=== PATIENT | female | born 1970 | race Caucasian/White ===

== ENCOUNTER → 2023-11-07 | Outpatient (CLI) | payer OTHER ==
[2023-11-07 11:41] LABS: BASO # 0.1 10^3/uL (0.0-0.2); BASO % 0.3 % (0.0-1.0); EOS # 0.3 10^3/uL (0.0-0.5); EOS % 1.5 % (0.0-3.0); HEMATOCRIT 46.9 % (36.0-47.0); HEMOGLOBIN 15.7 g/dl (12.0-15.5); LYMPH % 16.1 % (24.0-44.0); MEAN CORPUSCULAR HEMOGLOBIN 33.7 pg (27.0-33.0); MEAN CORPUSCULAR HGB CONC 33.5 g/dl (32.0-36.5); MEAN CORPUSCULAR VOLUME 100.6 fl (80.0-96.0); MONO # 1.8 10^3/uL (0.0-0.8); MONO % 9.4 % (2.0-8.0); NEUTROPHILS # 13.6 10^3/uL (1.5-8.5); NEUTROPHILS % 72.2 % (36.0-66.0); PLATELET COUNT, AUTOMATED 327 10^3/uL (150-450); RED BLOOD COUNT 4.66 10^6/uL (4.00-5.40); WHITE BLOOD COUNT 18.9 10^3/uL (4.0-10.0)
[2023-11-07 12:09] LABS: ALBUMIN 3.7 G/DL (3.2-5.2); ALKALINE PHOSPHATASE 96 U/L (46-116); ALT/SGPT 26 U/L (7.0-40); AST/SGOT 11 U/L (<34); BILIRUBIN,TOTAL 1.1 MG/DL (0.3-1.2); BLOOD UREA NITROGEN 11 MG/DL (9-23); CALCIUM LEVEL 9.5 MG/DL (8.5-10.1); CARBON DIOXIDE LEVEL 31 MMOL/L (20-31); CHLORIDE LEVEL 105 MMOL/L (98-107); CHOLESTEROL LEVEL 207 MG/DL (<200); CREATININE FOR GFR 0.57 MG/DL (0.55-1.30); GLOMERULAR FILTRATION RATE > 60.0 (>51); GLUCOSE, FASTING 74 MG/DL (60-100); HDL CHOLESTEROL 37.6 MG/DL (>40); LDL CHOLESTEROL 141.2 MG/DL (<100); MAGNESIUM LEVEL 2.1 MG/DL (1.8-2.4); NON-HDL-C 169.4 MG/DL; POTASSIUM SERUM 3.8 MMOL/L (3.5-5.1); SODIUM LEVEL 139 MMOL/L (136-145); TOTAL PROTEIN 6.7 G/DL (5.7-8.2); TRIGLYCERIDES LEVEL 141 MG/DL (<150)
[2023-11-07 12:10] LABS: TOTAL 25(OH) VITAMIN D 21.3 NG/ML (20.0-100.0); VITAMIN B12 LEVEL 1119 PG/ML (211-911)
[2023-11-07 12:11] LABS: FOLATE 10.3 NG/ML (>5.4); THYROID STIMULATING HORMONE 1.791 uIU/ML (0.55-4.78)
[2023-11-07 12:14] LABS: HEMOGLOBIN A1c 5.1 % (4.0-6.0)
[2023-11-07 12:42] LABS: HIV 1&2 SCREEN NEGATIVE (NEGATIVE)
[2023-11-07 12:49] LABS: HEPATITIS C VIRUS ABY INDEX < 0.02 INDEX (<0.8)
== END ==
LOC: M LAB 11:06
PROVIDERS: ATTEND Physician Assistant
DX: Z11.9 Encounter for screening for infectious and parasitic diseases, unspecified (principal); E66.9 Obesity, unspecified; R53.83 Other fatigue; E55.9 Vitamin D deficiency, unspecified

== ENCOUNTER → 2023-11-22 | Outpatient (CLI) | payer OTHER | LOC: M WHC 08:48 | PROVIDERS: ATTEND Physician Assistant | DX: Z12.31 Encounter for screening mammogram for malignant neoplasm of breast (principal) ==

== ENCOUNTER → 2023-12-11 | Outpatient (REF) | payer OTHER ==
[2023-12-11 13:09] LABS: BASO # 0.1 10^3/uL (0.0-0.2); BASO % 0.5 % (0.0-1.0); EOS # 0.2 10^3/uL (0.0-0.5); EOS % 1.6 % (0.0-3.0); HEMATOCRIT 46.5 % (36.0-47.0); HEMOGLOBIN 15.5 g/dl (12.0-15.5); LYMPH # 2.4 10^3/uL (1.5-5.0); LYMPH % 23.2 % (24.0-44.0); MEAN CORPUSCULAR HEMOGLOBIN 33.6 pg (27.0-33.0); MEAN CORPUSCULAR HGB CONC 33.3 g/dl (32.0-36.5); MEAN CORPUSCULAR VOLUME 100.9 fl (80.0-96.0); MONO # 1.1 10^3/uL (0.0-0.8); MONO % 10.2 % (2.0-8.0); NEUTROPHILS # 6.6 10^3/uL (1.5-8.5); NEUTROPHILS % 64.3 % (36.0-66.0); PLATELET COUNT, AUTOMATED 288 10^3/uL (150-450); RED BLOOD COUNT 4.61 10^6/uL (4.00-5.40); WHITE BLOOD COUNT 10.3 10^3/uL (4.0-10.0)
[2023-12-11 13:35] LABS: CHOLESTEROL RISK RATIO 6.09 (<5); HDL CHOLESTEROL 38.9 MG/DL (>40); LDL CHOLESTEROL 165.5 MG/DL (<100); NON-HDL-C 198.1 MG/DL
== END ==
LOC: M LAB REF 11:34
PROVIDERS: ATTEND Physician Assistant
DX: D72.829 Elevated white blood cell count, unspecified (principal); R79.89 Other specified abnormal findings of blood chemistry

== ENCOUNTER → 2023-12-14 | Outpatient (CLI) | payer OTHER | LOC: M WHC 07:33 | PROVIDERS: ATTEND Physician Assistant | DX: N63.13 Unspecified lump in the right breast, lower outer quadrant (principal); N63.21 Unspecified lump in the left breast, upper outer quadrant ==

== ENCOUNTER 2024-02-26 10:47 | Day surgery (SDC) | payer MEDICAID, OTHER ==
[~2024-02-26] VITALS: Ht 162.6 cm; Wt 83.9 kg
[~2024-02-26 10:47] MED LIST: ADV100INH INH; ALBU2.5V10 INH; ATOR1TAB21 PO; LISI5TAB11 PO; NS 1,000 ML IV ONE; VENTAER INH
[2024-02-26] MEDS ORDERED: LIDOCAINE 2% 100MG/5ML SDV (FOR ANES.) As Ordered ONE (12:48)
[2024-02-26] MEDS ORDERED: propofoL 200 MG/20 ML VIAL As Ordered ONE (12:48)
[2024-02-26] MEDS ORDERED: propofoL 500 MG/50 ML VIAL As Ordered ONE (12:49)
[2024-02-26 13:08] VITALS: TEMP 97.2
[2024-02-26 13:42] VITALS: BP 163/74; O2SAT 99
== END 2024-02-26 13:43 | disposition home or self-care (01) ==
LOC: M OPP 10:47
PROVIDERS: ATTEND Internal Medicine Gastroenterology
DX: Z12.11 Encounter for screening for malignant neoplasm of colon (principal); D12.2 Benign neoplasm of ascending colon; D12.4 Benign neoplasm of descending colon; K64.8 Other hemorrhoids; K57.30 Diverticulosis of large intestine without perforation or abscess without bleeding; I10 Essential (primary) hypertension; Z87.891 Personal history of nicotine dependence; Z79.51 Long term (current) use of inhaled steroids; Z79.899 Other long term (current) drug therapy; Z88.2 Allergy status to sulfonamides

== ENCOUNTER → 2024-03-26 | Outpatient (CLI) | payer OTHER ==
[~2024-03-26] MED LIST changes: -NS 1,000 ML IV ONE
== END ==
LOC: M RAD 09:21
PROVIDERS: ATTEND Physician Assistant
DX: M25.711 Osteophyte, right shoulder (principal); R22.31 Localized swelling, mass and lump, right upper limb

== ENCOUNTER → 2024-04-01 | Outpatient (CLI) | payer OTHER | LOC: M RAD 09:41 | PROVIDERS: ATTEND Physician Assistant | DX: R22.31 Localized swelling, mass and lump, right upper limb (principal) ==

== ENCOUNTER → 2024-06-12 | Outpatient (REF) | payer MEDICAID, OTHER ==
[2024-06-14 16:47] LABS: HPV APTIMA Detected (Not Detected)
== END ==
LOC: M SFHCWAGY 13:22
PROVIDERS: ATTEND Nurse Practitioner Family
DX: Z12.4 Encounter for screening for malignant neoplasm of cervix (principal); A59.01 Trichomonal vulvovaginitis

== ENCOUNTER → 2024-07-03 | Outpatient (CLI) | payer OTHER | LOC: M WHC 09:38 | PROVIDERS: ATTEND Physician Assistant | DX: N63.21 Unspecified lump in the left breast, upper outer quadrant (principal) ==